=== PATIENT | male | born 1985 | race Caucasian/White ===

== ENCOUNTER 2017-10-09 11:15 | Day surgery (SDC) | payer SELFPAY ==
[2017-10-08 13:47] VITALS: BMI 39.5
--- NOTE | 2017-10-09 15:16 | OP ---
Operative Note - Note: Operative Date: 10/09/17 Pre-Operative Diagnosis: cosmetic lipodystrophy Operation: Suction assisted lipectomy of chest,abdomen and flanks/back Post-Operative Diagnosis: Same as Pre-op Surgeon: Xavi Cuevas Anesthesia: General Estimated Blood Loss (mls): 100
[2017-10-09] MEDS ORDERED: MIDAZOLAM HCL 2 MG/2 ML SINGLE DOSE VIAL ONE ×2 (15:28)
[2017-10-09] MEDS ORDERED: PROPOFOL 20 ML ONE ×2 (15:36)
[2017-10-09] MEDS ORDERED: EPINEPHrine/PF 1 MG/1 ML (1:1,000) AMPULE ONE ×2 (15:44→16:26)
[2017-10-09] MEDS ORDERED: ceFAZolin SODIUM 1 GM VIAL IVPB ONE (16:05)
[2017-10-09] MEDS ORDERED: LIDOCAINE HCL 1% PRESERVATIVE FREE - 30ML VIAL INF ONE (16:19)
[2017-10-09] MEDS ORDERED: LIDOCAINE 1%/EPI 1:100000 (20 ML MULTI DOSE VIAL) IJ ONE (16:19)
[2017-10-09] MEDS ORDERED: EPINEPHrine/PF 1 MG/1 ML (1:1,000) AMPULE SQ ONE ×2 (16:19→16:36)
[2017-10-09] MEDS ORDERED: ePHEDrine SULFATE 50 MG/1 ML AMPULE ONE ×2 (16:32→16:33)
[2017-10-09] MEDS ORDERED: oxyCODONE HCL 5 MG TABLET PO PRN (18:06)
[2017-10-09] MEDS ORDERED: ONDANSETRON 4 MG/2 ML VIAL IVPUSH PRN (18:06)
[2017-10-09] MEDS ORDERED: LACTATED RINGERS SOLUTION 1,000 ML IV SCH (18:15)
[2017-10-09 19:12] VITALS: PULSE 78; TEMP 97.7
[2017-10-09] MEDS ORDERED: oxyCODONE HCL 5 MG TABLET ONE (19:26)
[2017-10-09 20:20] VITALS: BP 132/78
--- NOTE | 2017-10-11 08:01 | OP ---
DATE OF OPERATION: 10/09/2017 SURGEON: Elias Cuevas MD PREOPERATIVE DIAGNOSIS: Cosmetic lipodystrophy of abdomen, chest, flanks, and back. POSTOPERATIVE DIAGNOSIS: Cosmetic lipodystrophy of abdomen, chest, flanks, and back. OPERATIVE PROCEDURE: Suction-assisted lipectomy of abdomen, flanks, back, and chest. OPERATIVE INDICATION: Patient is a young man of 32 years old who desired surgical removal of fat in these areas as described above. The risks and benefits of surgical versus nonsurgical alternatives were described to the patient on multiple occasions. He agreed to the planned procedure. All questions were asked and answered. The patient had previously undergone gynecomastia surgery and had a scar in the infra-areolar area from this prior. OPERATIVE PROCEDURE IN DETAIL: Patient was taken to the operating room, and after induction of general anesthesia in the supine position, both arms were extended and padded, and then, all areas on the abdomen were prepped and draped as well as the upper back with Betadine solution. After drying, sterile drapes were placed in the usual fashion, and attention was turned to the procedure. Small incisions were made in multiple areas along the lower abdomen, flank, and chest area. Dilute solution of epinephrine, lidocaine in the usual fashion for tumescent liposuction was carried out over all areas, and approximately 2.5 L of fluid were injected. After allowing 10-15 minutes of hemostasis and anesthesia, a suction-assisted lipectomy was carried out using the MicroAire device over all of these areas extensively. Approximately 2500 mL of fatty material were removed symmetrically on both sides of the abdomen, flanks, back, and the chest area. He tolerated the procedure well. He was placed into a garment on the table of both chest and abdomen and was awakened and brought to the recovery room in satisfactory condition. He tolerated the procedure well. ELIAS CUEVAS M.D. [id number]
== END 2017-10-09 20:00 | disposition home or self-care (01) ==
LOC: JASU-SURG 11:15 → EDSEX 14:00 → JASU-SURG 20:00
PROVIDERS: ATTEND Plastic Surgery